=== PATIENT | male | born 1985 | race Two or more races ===

== ENCOUNTER 2016-10-21 15:34 | Emergency (ER) | payer SELFPAY ==
[2016-10-21 15:40] VITALS: BP 130/59
--- NOTE | 2016-10-21 15:45 | ER Document Report ---
ED Medical Screen (RME) - General Stated Complaint: DIFFICULTY BREATHING Notes: 30 yo male with hx/o asthma c/o shortness of breath. needs med refills, albuterol. c/o sore throat and cough x 2 weeks. no fever. Physical Exam - Vital signs Vitals: Temp Pulse Resp BP Pulse Ox 98.1 F 96 18 130/59 H 99 10/21/16 15:39 10/21/16 15:39 10/21/16 15:39 10/21/16 15:39 10/21/16 15:39 Course - Vital Signs Vital signs: Temp Pulse Resp BP Pulse Ox 98.1 F 96 18 130/59 H 99 10/21/16 15:39 10/21/16 15:39 10/21/16 15:39 10/21/16 15:39 10/21/16 15:39
== END 2016-10-21 17:20 | disposition left against medical advice (07) ==
LOC: ER 15:34
DX: R06.00 Dyspnea, unspecified (principal); J02.9 Acute pharyngitis, unspecified; R05 Cough

== ENCOUNTER 2017-03-10 20:36 | Emergency (ER) | payer SELFPAY ==
[2017-03-10] MEDS ORDERED: ASPIRIN 81 MG TABLET, CHEWABLE PO ONE (20:59)
--- NOTE | 2017-03-10 21:21 | RADIOLOGY REPORT (SQ) ---
EXAM DESCRIPTION: CHEST SINGLE VIEW COMPLETED DATE/TIME: 03/10/2017 9:11 pm REASON FOR STUDY: CHEST PAIN COMPARISON: None. EXAM PARAMETERS: NUMBER OF VIEWS: One view. TECHNIQUE: Single frontal radiographic view of the chest acquired. RADIATION DOSE: NA LIMITATIONS: None. FINDINGS: LUNGS AND PLEURA: No opacities, masses or pneumothorax. No pleural effusion. MEDIASTINUM AND HILAR STRUCTURES: No masses. Contour normal. HEART AND VASCULAR STRUCTURES: Heart normal in size. Normal vasculature. BONES: No acute findings. HARDWARE: None in the chest. OTHER: No other significant finding. IMPRESSION: NO ACUTE RADIOGRAPHIC FINDING IN THE CHEST. TECHNICAL DOCUMENTATION: JOB ID: [id number]
[2017-03-10 21:33] LABS: ABSOLUTE BASOPHILS # (AUTO) 0.1 10^3/uL (0.0-0.2); ABSOLUTE EOSINOPHILS # (AUTO) 0.7 10^3/uL (0.0-0.6); ABSOLUTE LYMPHOCYTES (AUTO) 2.5 10^3/uL (0.5-4.7); ABSOLUTE MONOCYTES (AUTO) 0.8 10^3/uL (0.1-1.4); ABSOLUTE NEUT (AUTO) 5.1 10^3/uL (1.7-8.2); EOSINOPHILS % (AUTO) 7.5 % (0-6); HEMATOCRIT 38.1 % (37.9-51.0); HEMOGLOBIN 11.9 g/dL (13.5-17.0); HGB HCT DIFFERENCE -2.4; LYMPHOCYTES % (AUTO) 27.5 % (13-45); MEAN CORPUSCULAR HEMOGLOBIN 18.6 pg (27.0-33.4); MEAN CORPUSCULAR HGB CONC 31.2 g/dL (32.0-36.0); MONOCYTES % (AUTO) 8.3 % (3-13); RED BLOOD COUNT 6.39 10^6/uL (4.35-5.55); RED CELL DISTRIBUTION WIDTH 15.5 % (11.5-14.0); SEGMENTED NEUTROPHILS % (AUTO) 55.7 % (42-78); WHITE BLOOD COUNT 9.2 10^3/uL (4.0-10.5)
[2017-03-10 21:34] LABS: PROTHROMBIN TIME 13.2 SEC (11.4-15.4)
[2017-03-10 21:35] LABS: PARTIAL THROMBOPLASTIN TIME 29.6 SEC (23.5-35.8)
[2017-03-10 21:52] LABS: ALANINE AMINOTRANSFERASE 43 U/L (21-72); ALBUMIN 4.3 g/dL (3.5-5.0); ALKALINE PHOSPHATASE 82 U/L (38-126); ANION GAP 10 (5-19); ASPARTATE AMINO TRANSFERASE 29 U/L (17-59); BILIRUBIN,DIRECT 0.3 mg/dL (0.0-0.4); BILIRUBIN,TOTAL 0.5 mg/dL (0.2-1.3); BLOOD UREA NITROGEN 19 mg/dL (7-20); CALCIUM 9.7 mg/dL (8.4-10.2); CARBON DIOXIDE 27 mmol/L (22-30); CHLORIDE 105 mmol/L (98-107); CREATININE RESULT 1.02 mg/dL (0.52-1.25); GLUCOSE 92 mg/dL (75-110); POTASSIUM 3.8 mmol/L (3.6-5.0); SODIUM 142.2 mmol/L (137-145); TOTAL PROTEIN 7.6 g/dL (6.3-8.2)
[2017-03-10 21:58] LABS: ANISOCYTOSIS 1+; HYPOCHROMASIA 1+; MICROCYTOSIS 3+; OVALOCYTES SLIGHT; POIKILOCYTOSIS SLIGHT; TARGET CELLS SLIGHT; TEAR DROP CELLS SLIGHT
[2017-03-10 21:59] LABS: MEAN CORPUSCULAR VOLUME 60 fl (80-97)
[2017-03-10 22:00] LABS: CREATINE KINASE MB 0.81 ng/mL (<4.55)
[2017-03-10 22:02] LABS: TROPONIN I < 0.012 ng/mL
--- NOTE | 2017-03-11 00:46 | ER Document Report ---
ED General - General Chief Complaint: Chest Pain > 30 Stated Complaint: CHEST PAIN Time Seen by Provider: 03/10/17 22:15 TRAVEL OUTSIDE OF THE [place] IN LAST 30 DAYS: No - HPI Patient complains to provider of: Chest pain Notes: Patient is coming in for complaint of chest pain chest pressure started day prior to arrival. Patient states has a history of having an PR when he was 20 days father to be engaged in the 30s of heart attack. Patient states recent travel [place] on a train. Patient states chest pressure was global to take 1 sublingual nitro when the chest pain happened 24 hours ago with minimal relief of the pain. Patient currently is chest pain-free. Patient does state he is mildly short of breath when the pain came on. States went to an urgent care for evaluation and was told to come to the ER for further evaluation. Patient is resting calmly denies any other past medical problems states his PR at 20 was due to suspected excessive caffeine energy drink use. - Related Data Allergies/Adverse Reactions: No Known Allergies Allergy (Unverified 03/10/17 20:59) Past Medical History - Social History Smoking Status: Never Smoker Frequency of alcohol use: None Drug Abuse: None Family History: Reviewed & Not Pertinent Patient has suicidal ideation: No Patient has homicidal ideation: No - Past Medical History Cardiac Medical History: Reports: Hx Heart Attack Renal/ Medical History: Denies: Hx Peritoneal Dialysis Past Surgical History: Reports: Hx Cardiac Surgery - Immunizations Hx Diphtheria, Pertussis, Tetanus Vaccination: Yes Review of Systems - Review of Systems Constitutional: No symptoms reported EENT: No symptoms reported Cardiovascular: Chest pain Respiratory: No symptoms reported Gastrointestinal: No symptoms reported Genitourinary: No symptoms reported Male Genitourinary: No symptoms reported Musculoskeletal: No symptoms reported Skin: No symptoms reported Hematologic/Lymphatic: No symptoms reported Neurological/Psychological: No symptoms reported -: Yes All other systems reviewed and negative Physical Exam - Vital signs Vitals: Temp Pulse Resp BP Pulse Ox 97.7 F 88 16 141/84 H 98 03/10/17 20:56 03/10/17 20:56 03/10/17 20:56 03/10/17 20:56 03/10/17 20:56 Interpretation: Normal - General General appearance: Appears well, Alert - HEENT Head: Normocephalic, Atraumatic Eyes: Normal Pupils: PERRL - Respiratory Respiratory status: No respiratory distress Chest status: Nontender Breath sounds: Normal Chest palpation: Normal - Cardiovascular Rhythm: Regular Heart sounds: Normal auscultation Murmur: No - Abdominal Inspection: Normal Distension: No distension Bowel sounds: Normal Tenderness: Nontender Organomegaly: No organomegaly - Back Back: Normal, Nontender - Extremities General upper extremity: Normal inspection, Nontender, Normal color, Normal ROM , Normal temperature General lower extremity: Normal inspection, Nontender, Normal color, Normal ROM , Normal temperature, Normal weight bearing. No: Junaid's sign - Neurological Neuro grossly intact: Yes Cognition: Normal Orientation: AAOx4 [place] Coma Scale Eye Opening: Spontaneous [place] Coma Scale Verbal: Oriented [place] Coma Scale Motor: Obeys Commands [place] Coma Scale Total: 15 Speech: Normal Motor strength normal: LUE, RUE, LLE, RLE Sensory: Normal - Psychological Associated symptoms: Normal affect, Normal mood - Skin Skin Temperature: Warm Skin Moisture: Dry Skin Color: Normal Course - Re-evaluation Re-evalutation: 03/11/17 00:45 The patient has atypical chest pain as the patient's chest pain is not suggestive of pulmonary embolus, cardiac ischemia, aortic dissection, or other serious etiology. Given the extremely low risk of these diagnoses further testing and evaluation for these possibilities does not appear to be indicated at this time. The patient has been instructed to return if the symptoms worsen or change in any way. 03/11/17 00:46 Number EKG troponins 2 are negative. Chest x-ray is also negative. Patient is encouraged follow-up with local PCP and cardiology. - Vital Signs Vital signs: Temp Pulse Resp BP Pulse Ox 98.0 F 81 18 117/47 L 97 03/10/17 23:00 03/10/17 23:00 03/10/17 23:00 03/10/17 23:00 03/10/17 23:00 - Laboratory Result Diagrams: 03/10/17 21:10 03/10/17 21:10 Laboratory results interpreted by me: 03/10/17 21:10 RBC 6.39 H Hgb 11.9 L MCV 60 L MCH 18.6 L MCHC 31.2 L RDW 15.5 H Eosinophils % 7.5 H Absolute Eosinophils 0.7 H Discharge - Discharge Clinical Impression: Chest tightness or pressure Condition: Good Disposition: HOME, SELF-CARE Instructions: Chest Pain of Unclear Cause ([facility]), Chest Wall Pain ([facility]), Family Physicians / Practices Additional Instructions: Please follow-up with your primary care physician or physicians provided. Also recommended she follow-up with cardiology. Return to the ER symptoms worsen. Please continue your aspirin regimen. Referrals: OBED VAZQUEZ MD [ACTIVE STAFF] - Follow up as needed
[2017-03-11 01:21] VITALS: BP 121/64
--- NOTE | 2017-03-11 09:57 | EKG REPORT ---
SEVERITY:- NORMAL ECG - SINUS RHYTHM : Confirmed by: Isaac Licea 11-Mar-2017 09:55:35
[2017-03-11 14:46] LABS: PATH REVIEW PATHOLOGIST REVIEWED
== END 2017-03-11 01:30 | disposition home or self-care (01) ==
LOC: ER 20:36
DX: R07.89 Other chest pain (principal); I25.2 Old myocardial infarction; R06.02 Shortness of breath
CPT/HCPCS: 36415; 71010; 80053; 82553; 84443; 84484; 85025; 85379; 85610; 85730; 93005; 93010; 99285

== ENCOUNTER → 2018-09-07 | Outpatient (CLI) | payer OTHER ==
--- NOTE | 2018-09-07 14:56 | RADIOLOGY REPORT (SQ) ---
EXAM DESCRIPTION: FOOT LEFT COMPLETE COMPLETED DATE/TIME: 09/07/2018 2:47 pm REASON FOR STUDY: LEFT FOOT AND ANKLE PAIN (M79.672, M25.572) M79.672 PAIN IN LEFT FOOT M25.572 PA IN IN LEFT ANKLE AND JOINTS OF LEFT FOOT COMPARISON: None. NUMBER OF VIEWS: Three views. TECHNIQUE: AP, lateral and oblique radiographic images acquired of the left foot. LIMITATIONS: None. FINDINGS: MINERALIZATION: Normal. BONES: No acute fracture or dislocation. No worrisome bone lesions. JOINTS: No effusions. SOFT TISSUES: No soft tissue swelling. No foreign body. OTHER: No other significant finding. IMPRESSION: 1. NEGATIVE STUDY OF THE LEFT FOOT. TECHNICAL DOCUMENTATION: JOB ID: [id number] [employer]- All Rights Reserved Reading location - IP/workstation name: [email or web address]
--- NOTE | 2018-09-07 14:56 | RADIOLOGY REPORT (SQ) ---
EXAM DESCRIPTION: ANKLE LEFT COMPLETE COMPLETED DATE/TIME: 09/07/2018 2:47 pm REASON FOR STUDY: LEFT FOOT AND ANKLE PAIN (M79.672, M25.572) M79.672 PAIN IN LEFT FOOT M25.572 PA IN IN LEFT ANKLE AND JOINTS OF LEFT FOOT COMPARISON: None. NUMBER OF VIEWS: Three views. TECHNIQUE: AP, lateral, and oblique radiographic images acquired of the left ankle. LIMITATIONS: None. FINDINGS: MINERALIZATION: Normal. BONES: No acute fracture or dislocation. No worrisome bone lesions. JOINTS: No effusions. SOFT TISSUES: No soft tissue swelling. No foreign body. OTHER: No other significant finding. IMPRESSION: 1. NEGATIVE STUDY OF THE LEFT ANKLE. TECHNICAL DOCUMENTATION: JOB ID: [id number] [employer]- All Rights Reserved Reading location - IP/workstation name: [email or web address]
== END ==
LOC: RAD 14:24
PROVIDERS: ATTEND Internal Medicine
DX: M79.672 Pain in left foot (principal); M25.572 Pain in left ankle and joints of left foot

== ENCOUNTER → 2018-09-13 | Outpatient (CLI) | payer OTHER ==
--- NOTE | 2018-09-13 08:50 | RADIOLOGY REPORT (SQ) ---
EXAM DESCRIPTION: MRI LT LOWER JOINT WITHOUT COMPLETED DATE/TIME: 09/13/2018 8:16 am REASON FOR STUDY: M25.572 PAIN IN LEFT ANKLE AND JOINTS OF LEFT FOOT M79.662 PAIN IN LEFT LOWER LEG COMPARISON: Recent radiographs. TECHNIQUE: Left ankle images acquired and stored on PACS. Multiplanar images include fat sensitive s equences as T1, fluid sensitive sequences as FST2/STIR, cartilage sensitive sequences as FSPD, and gr adient echo sequences. LIMITATIONS: None. FINDINGS: BONE MARROW: Marrow edema in the posterosuperior calcaneal tuberosity underlying Achilles insertion. EFFUSIONS: No subtalar or tibiotalar effusions. No loose bodies. OSSEOUS ARTICULATIONS: Normal tibiotalar, subtalar, talonavicular and calcaneocuboid joints. TALAR DOME AND TIBIAL PLAFOND: No talar dome lesions. Prominent os trigonum without arthropathic fea tures. ACHILLES TENDON: No significant Achilles tear. Mild thickening and tendinosis. There is retrocalcan eal bursitis and calcaneal insertional bone edema as above. TIBIALIS ANTERIOR TENDON: Intact without edema at the 1st MT attachment. TIBIALIS POSTERIOR TENDON: Normal morphology and no edema at the navicular attachment. No tendon purcell th fluid. FLEXOR HALLUCIS LONGUS AND FLEXOR DIGITORUM TENDONS: Normal morphology and no tendon sheath fluid. No edema of the os trigonum. PERONEUS LONGUS AND BREVIS TENDON: Normal morphology and no tendon sheath fluid. No subluxation. ATFL, CFL, PTFL: Intact. No thickening or signal alteration. No kandace-ligamentous fluid. DELTOID LIGAMENT: Visualized components intact. TARSAL TUNNEL: No masses. No muscle atrophy. SINUS TARSI: No fluid. No reactive marrow edema or erosions. PLANTAR FASCIA: No signal alteration or tear. ADJACENT SOFT TISSUES: No masses. OTHER: No other significant finding. IMPRESSION: 1. Reactive calcaneal marrow edema along Achilles insertion. The Achilles tendon itsel f looks relatively intact allowing for mild tendinosis. There is also and mild retrocalcaneal bursit is present. 2. Otherwise, generally unremarkable MRI of the left ankle. TECHNICAL DOCUMENTATION: JOB ID: [id number] [employer]- All Rights Reserved Reading location - IP/workstation name: [email or web address] [id number]
== END ==
LOC: RAD 07:48
PROVIDERS: ATTEND Family Medicine Geriatric Medicine
DX: M25.572 Pain in left ankle and joints of left foot (principal); M76.62 Achilles tendinitis, left leg; M79.672 Pain in left foot

== ENCOUNTER 2019-02-04 07:51 | Emergency (ER) | payer SELFPAY ==
[2019-02-04] MEDS ORDERED: KETOROLAC TROMETHAMINE INJ/PF 30 MG/1 ML SDV IV ONE (08:15)
--- NOTE | 2019-02-04 08:20 | ER Document Report ---
ED GI/ - General Chief Complaint: Flank Pain Stated Complaint: SIDE PAIN Time Seen by Provider: 02/04/19 08:08 Primary Care Provider: RITCHIE DE LA CRUZ MD [COMMUNITY BASED STAFF] - Follow up as needed Mode of Arrival: Ambulatory Information source: Patient Notes: Patient is a 33-year-old male presenting to the emergency department chief complaint of left flank pain. Patient reports the pain started on . Patient reports pain radiates around from the left flank into the left mid abdomen. Patient denies any hematuria, dysuria, nausea, vomiting, diarrhea or fevers. Patient denies any history of kidney stones. Reports history of asthma. Patient states the pain is constant and peaks in intensity. Patient denies any alleviating or exacerbating factors. TRAVEL OUTSIDE OF THE [place] IN LAST 30 DAYS: No - Related Data Allergies/Adverse Reactions: No Known Allergies Allergy (Verified 02/04/19 07:51) Past Medical History - General Information source: Patient - Social History Smoking Status: Never Smoker Frequency of alcohol use: None Drug Abuse: None Family History: Reviewed & Not Pertinent - Past Medical History Cardiac Medical History: Reports: Hx Heart Attack Pulmonary Medical History: Reports: Hx Asthma Renal/ Medical History: Denies: Hx Peritoneal Dialysis Past Surgical History: Reports: Hx Cardiac Surgery - Immunizations Hx Diphtheria, Pertussis, Tetanus Vaccination: Yes Review of Systems - Review of Systems Constitutional: No symptoms reported. denies: Chills, Fever EENT: No symptoms reported Cardiovascular: No symptoms reported Respiratory: No symptoms reported Gastrointestinal: No symptoms reported. denies: Nausea, Vomiting, Constipation Genitourinary: Flank pain. denies: Dysuria, Frequency, Hematuria, Urgency Male Genitourinary: No symptoms reported Musculoskeletal: No symptoms reported Skin: No symptoms reported Hematologic/Lymphatic: No symptoms reported Neurological/Psychological: No symptoms reported Physical Exam - Vital signs Vitals: Temp Pulse Resp BP Pulse Ox 97.7 F 85 20 110/88 H 100 02/04/19 07:55 02/04/19 07:55 02/04/19 07:55 02/04/19 07:55 02/04/19 07:55 - Notes Notes: PHYSICAL EXAMINATION: GENERAL: Well-appearing, well-nourished and in no acute distress. HEAD: Atraumatic, normocephalic. EYES: Pupils equal round and reactive to light, extraocular movements intact, sclera anicteric, conjunctiva are normal. ENT: Nares patent, oropharynx clear without exudates. Moist mucous membranes. NECK: Normal range of motion, supple without lymphadenopathy LUNGS: Breath sounds clear to auscultation bilaterally and equal. No wheezes rales or rhonchi. HEART: Regular rate and rhythm without murmurs ABDOMEN: Soft, nontender, nondistended abdomen. No guarding, no rebound. No masses appreciated. Left CVA tenderness. Musculoskeletal: Normal range of motion, no pitting or edema. No cyanosis. NEUROLOGICAL: Cranial nerves grossly intact. Normal speech, normal gait. Normal sensory, motor exams PSYCH: Normal mood, normal affect. SKIN: Warm, Dry, normal turgor, no rashes or lesions noted. Course - Re-evaluation Re-evalutation: Patient with mild leukocytosis, white blood count 12.2. Labs otherwise unremarkable. Left upper lobe and left lower lobe pneumonia are not noted on chest x-ray and left lower lobe pneumonia noted on CT of the abdomen and pelvis. No evidence of renal stone. Patient's vital signs are stable, no evidence of tachycardia or hypotension. Patient will be given dose of IV Rocephin here in the emergency department and started on p.o. antibiotics. Patient is agreeable to this plan, patient given strict ED return precautions. - Vital Signs Vital signs: Temp Pulse Resp BP Pulse Ox 97.4 F 79 14 114/99 H 100 02/04/19 11:27 02/04/19 11:27 02/04/19 11:27 02/04/19 11:27 02/04/19 11:27 - Laboratory Result Diagrams: 02/04/19 08:30 02/04/19 08:30 Laboratory results interpreted by me: 02/04/19 08:30 WBC 10.6 H RBC 6.25 H Hgb 12.2 L Hct 37.2 L MCV 60 L MCH 19.5 L RDW 15.9 H Lymphocytes % 8.3 L Discharge - Discharge Clinical Impression: Pneumonia Qualifiers: Pneumonia type: due to unspecified organism Laterality: left Lung location: unspecified part of lung Qualified Code(s): J18.9 - Pneumonia, unspecified organism Condition: Stable Disposition: HOME, SELF-CARE Additional Instructions: You have been diagnosed with a pneumonia. It is very important that you take all of your antibiotics until they are gone even if you are feeling better. Please return to the emergency department immediately if you began having worse kang shortness of breath, become confused, have worsening pain, pass out, have persistent vomiting that prevents you from being able to drink fluids for more than 12 hours, or have any other symptoms that are worrisome to you. Please follow-up with your primary care doctor in the next 1-2 days. Prescriptions: Doxycycline Hyclate 100 mg PO BID #14 capsule Hydrocodone/Acetaminophen [[place] 5-325 mg Tablet] 1 tab PO Q4H PRN #10 tablet PRN Reason: Referrals: RITCHIE DE LA CRUZ MD [COMMUNITY BASED STAFF] - Follow up as needed
[2019-02-04 08:29] LABS: APPEARANCE,URINE CLEAR; BILIRUBIN,URINE NEGATIVE (NEGATIVE); COLOR,URINE YELLOW; GLUCOSE, URINE NEGATIVE (NEGATIVE); KETONES,URINE NEGATIVE (NEGATIVE); LEUKOCYTE ESTERASE,URINE NEGATIVE (NEGATIVE); NITRITE,URINE NEGATIVE (NEGATIVE); PROTEIN,URINE NEGATIVE (NEGATIVE); URINE SPECIFIC GRAVITY 1.018; UROBILINOGEN,URINE NEGATIVE mg/dL (<2.0)
[2019-02-04 08:46] LABS: ABSOLUTE BASOPHILS # (AUTO) 0.1 10^3/uL (0.0-0.2); ABSOLUTE EOSINOPHILS # (AUTO) 0.5 10^3/uL (0.0-0.6); ABSOLUTE LYMPHOCYTES (AUTO) 0.9 10^3/uL (0.5-4.7); ABSOLUTE MONOCYTES (AUTO) 1.2 10^3/uL (0.1-1.4); BASOPHILS % (AUTO) 0.7 % (0-2); EOSINOPHILS % (AUTO) 4.4 % (0-6); HEMATOCRIT 37.2 % (37.9-51.0); HEMOGLOBIN 12.2 g/dL (13.5-17.0); LYMPHOCYTES % (AUTO) 8.3 % (13-45); MEAN CORPUSCULAR HEMOGLOBIN 19.5 pg (27.0-33.4); MEAN CORPUSCULAR HGB CONC 32.8 g/dL (32.0-36.0); MONOCYTES % (AUTO) 11.2 % (3-13); PLATELET COUNT 295 10^3/uL (150-450); RED BLOOD COUNT 6.25 10^6/uL (4.35-5.55); RED CELL DISTRIBUTION WIDTH 15.9 % (11.5-14.0); SEGMENTED NEUTROPHILS % (AUTO) 75.4 % (42-78); TOTAL CELLS COUNTED % (AUTO) 100 %; WHITE BLOOD COUNT 10.6 10^3/uL (4.0-10.5)
[2019-02-04 09:05] LABS: ALANINE AMINOTRANSFERASE 41 U/L (21-72); ALBUMIN 4.4 g/dL (3.5-5.0); ALKALINE PHOSPHATASE 73 U/L (38-126); ANION GAP 9 (5-19); ASPARTATE AMINO TRANSFERASE 32 U/L (17-59); BILIRUBIN,DIRECT 0.3 mg/dL (0.0-0.4); BILIRUBIN,TOTAL 0.8 mg/dL (0.2-1.3); BLOOD UREA NITROGEN 15 mg/dL (7-20); CALCIUM 10.2 mg/dL (8.4-10.2); CARBON DIOXIDE 27 mmol/L (22-30); CHLORIDE 104 mmol/L (98-107); GLUCOSE 97 mg/dL (75-110); LIPASE 108.3 U/L (23-300); POTASSIUM 4.6 mmol/L (3.6-5.0); SODIUM 140.4 mmol/L (137-145); TOTAL PROTEIN 7.9 g/dL (6.3-8.2)
[2019-02-04 09:16] LABS: MEAN CORPUSCULAR VOLUME 60 fl (80-97)
[2019-02-04 09:18] LABS: ANISOCYTOSIS 1+; HYPOCHROMASIA 3+; OVALOCYTES 1+; POIKILOCYTOSIS 1+; POLYCHROMASIA SLIGHT
[2019-02-04 09:19] LABS: PLATELET COMMENT ADEQUATE; TEAR DROP CELLS SLIGHT
--- NOTE | 2019-02-04 09:25 | RADIOLOGY REPORT (SQ) ---
EXAM DESCRIPTION: CT ABD/PELVIS WITH IV ONLY COMPLETED DATE/TIME: 02/04/2019 9:03 am REASON FOR STUDY: left sided abd pain COMPARISON: None. TECHNIQUE: CT scan of the abdomen and pelvis performed using helical scanning technique with dynamic intravenous contrast injection. No oral contrast. Images reviewed with lung, soft tissue, and bone windows. Reconstructed coronal and sagittal MPR images reviewed. Delayed images for evaluation of the urinary system also acquired. All images stored on PACS. All CT scanners at this facility use dose modulation, iterative reconstruction, and/or weight based d osing when appropriate to reduce radiation dose to as low as reasonably achievable (ALARA). [facility]: Dose Right [facility]: CareDose [facility]: Dose Right [facility]: Teradose 4D [facility]: Hypejar CONTRAST TYPE AND DOSE: contrast/concentration: Isovue 350.00 mg/ml; Total Contrast Delivered: 99.0 ml; Total Saline Delivered: 72.0 ml RENAL FUNCTION: None required. The patient is less than 50 years old. RADIATION DOSE: CT Rad equipment meets quality standard of care and radiation dose reduction techniq ues were employed. CTDIvol: 5.9 - 8.2 mGy. DLP: 858 mGy-cm.. LIMITATIONS: None. FINDINGS: LOWER CHEST: Focal subpleural density in the posterior left lung, measuring 1.2 by 2.3 cm. No pleural effusion. No pneumothorax. LIVER: Normal size. No masses. No dilated ducts. SPLEEN: Normal size. No focal lesions. PANCREAS: No masses. No significant calcifications. No adjacent inflammation or peripancreatic fluid collections. Pancreatic duct not dilated. GALLBLADDER: No identified stones by CT criteria. No inflammatory changes to suggest cholecystitis. ADRENAL GLANDS: No significant masses or asymmetry. RIGHT KIDNEY AND URETER: No solid masses. No significant calcifications. No hydronephrosis or hyd roureter. LEFT KIDNEY AND URETER: No solid masses. No significant calcifications. No hydronephrosis or hydr oureter. AORTA AND VESSELS: No aneurysm. No dissection. Renal arteries, SMA, celiac without stenosis. RETROPERITONEUM: No retroperitoneal adenopathy, hemorrhage or masses. BOWEL AND PERITONEAL CAVITY: No masses or inflammatory changes. No free fluid or peritoneal masses. APPENDIX: Not visualized. PELVIS: No mass. No free fluid. Normal bladder. ABDOMINAL WALL: No masses. No hernias. BONES: No significant or acute findings. OTHER: No other significant finding. IMPRESSION: 1. FOCAL SUBPLEURAL DENSITY IN THE POSTERIOR LEFT LUNG, MOST LIKELY DUE TO PNEUMONIA. MALIGNANT PROC ESS WOULD BE ANOTHER POSSIBILITY BUT FELT TO BE LESS LIKELY. 2. NO SIGNIFICANT OR ACUTE FINDING IN THE ABDOMEN OR PELVIS ON CT SCAN WITH IV CONTRAST. TECHNICAL DOCUMENTATION: JOB ID: [id number] Quality ID # [id number]: Final reports with documentation of one or more dose reduction techniques (e.g., Au tomated exposure control, adjustment of the mA and/or kV according to patient size, use of iterative reconstruction technique) 2010 [employer]- All Rights Reserved Reading location - IP/workstation name: [email or web address]
[2019-02-04] MEDS ORDERED: CEFTRIAXONE 1 GM/D5W RTU 1 GM/50 ML RTUPB IV ONE ×2 (09:52→11:00)
--- NOTE | 2019-02-04 10:19 | RADIOLOGY REPORT (SQ) ---
EXAM DESCRIPTION: CHEST 2 VIEWS COMPLETED DATE/TIME: 02/04/2019 10:02 am REASON FOR STUDY: LLL PNA on CT abd, eval all lung [facility] COMPARISON: CT abdomen dated 02/04/2019. Chest x-ray dated 03/10/2017. EXAM PARAMETERS: NUMBER OF VIEWS: two views TECHNIQUE: Digital Frontal and Lateral radiographic views of the chest acquired. RADIATION DOSE: NA LIMITATIONS: none FINDINGS: LUNGS AND PLEURA: Faint density in the retrocardiac left lung, barely visible on the later al image. Streaky density in the left upper lobe. No pleural effusion. No pneumothorax. MEDIASTINUM AND HILAR STRUCTURES: No masses or contour abnormalities. HEART AND VASCULAR STRUCTURES: Heart normal size. No evidence for failure. BONES: No acute findings. HARDWARE: None in the chest. OTHER: No other significant finding. IMPRESSION: THE FAINT INFILTRATE IN THE LEFT LOWER LOBE IS DIFFICULT TO VISUALIZE ON X-RAY. THERE I S STREAKY DENSITY IN THE LEFT UPPER LOBE SUSPICIOUS FOR FAINT PNEUMONIA. TECHNICAL DOCUMENTATION: JOB ID: [id number] [employer]- All Rights Reserved Reading location - IP/workstation name: [email or web address]
[2019-02-04 11:29] VITALS: BP 114/99
[2019-02-06 13:10] LABS: PATH REVIEW PATHOLOGIST REVIEWED
== END 2019-02-04 11:32 | disposition home or self-care (01) ==
LOC: ER 07:51
DX: J18.9 Pneumonia, unspecified organism (principal); R10.9 Unspecified abdominal pain; I25.2 Old myocardial infarction
CPT/HCPCS: 99284; 96374; 36415; 83690; 85025; 80053; 81001; 71046; 74177; J1885; J0696

== ENCOUNTER 2019-02-04 21:31 | Observation (INO) | payer SELFPAY ==
--- NOTE | 2019-02-05 | ER Document Report ---
ED Medical Screen (RME) - General Chief Complaint: Cough Stated Complaint: SHORTNESS OF BREATH Time Seen by Provider: 02/04/19 23:55 TRAVEL OUTSIDE OF THE [place] IN LAST 30 DAYS: No - HPI Notes: 02/05/19 00:19 Patient presents to the emergency department with a chief complaint of worsening shortness of breath and bloody sputum. Patient states yesterday morning was diagnosed with pneumonia. States he was placed on doxycycline and hydrocodone for his cough. Patient did receive 1 dose of doxy at home. Patient reports that earlier today he had a 1 hour episode of persistent cough with bloody sputum. Patient states that his left flank pain has continued to get worse and he feels more labored with his breathing. Denies nausea vomiting or diarrhea. Patient reports a temperature of 103.0 at home in which he took Tylenol for. She reports that he was told if he was getting worse to return to the emergency department. - Related Data Allergies/Adverse Reactions: No Known Allergies Allergy (Verified 02/04/19 21:35) Past Medical History - Past Medical History Cardiac Medical History: Reports: Hx Heart Attack Pulmonary Medical History: Reports: Hx Asthma Renal/ Medical History: Denies: Hx Peritoneal Dialysis Past Surgical History: Reports: Hx Cardiac Surgery - Immunizations Hx Diphtheria, Pertussis, Tetanus Vaccination: Yes Physical Exam - Respiratory Respiratory status: Labored Chest status: Nontender, Pain on movement, Pain with cough, Pain with deep breathing Breath sounds: Normal, Productive cough Chest palpation: Normal Course - Re-evaluation Re-evalutation: 02/05/19 00:21 I have greeted and performed a rapid initial assessment of this patient. A comprehensive ED assessment and evaluation of the patient, analysis of test results and completion of the medical decision making process will be conducted by additional ED providers.
[2019-02-05 00:35] LABS: ABSOLUTE BASOPHILS # (AUTO) 0.1 10^3/uL (0.0-0.2); ABSOLUTE EOSINOPHILS # (AUTO) 0.7 10^3/uL (0.0-0.6); ABSOLUTE LYMPHOCYTES (AUTO) 1.6 10^3/uL (0.5-4.7); ABSOLUTE MONOCYTES (AUTO) 1.4 10^3/uL (0.1-1.4); BASOPHILS % (AUTO) 0.6 % (0-2); EOSINOPHILS % (AUTO) 5.9 % (0-6); HEMATOCRIT 38.6 % (37.9-51.0); HEMOGLOBIN 12.4 g/dL (13.5-17.0); LYMPHOCYTES % (AUTO) 13.5 % (13-45); MEAN CORPUSCULAR HEMOGLOBIN 18.9 pg (27.0-33.4); MEAN CORPUSCULAR VOLUME 59 fl (80-97); MONOCYTES % (AUTO) 12.1 % (3-13); PLATELET COUNT 329 10^3/uL (150-450); RED BLOOD COUNT 6.54 10^6/uL (4.35-5.55); RED CELL DISTRIBUTION WIDTH 15.9 % (11.5-14.0); SEGMENTED NEUTROPHILS % (AUTO) 67.9 % (42-78); TOTAL CELLS COUNTED % (AUTO) 100 %; WHITE BLOOD COUNT 11.8 10^3/uL (4.0-10.5)
[2019-02-05 00:53] LABS: PLATELET COMMENT ADEQUATE
[2019-02-05 00:55] LABS: ANISOCYTOSIS 1+; HYPOCHROMASIA SLIGHT; OVALOCYTES 1+; TARGET CELLS SLIGHT
[2019-02-05 00:58] LABS: ALANINE AMINOTRANSFERASE 36 U/L (21-72); ALBUMIN 4.4 g/dL (3.5-5.0); ALKALINE PHOSPHATASE 82 U/L (38-126); ANION GAP 10 (5-19); ASPARTATE AMINO TRANSFERASE 31 U/L (17-59); BILIRUBIN,DIRECT 0.3 mg/dL (0.0-0.4); BILIRUBIN,TOTAL 0.6 mg/dL (0.2-1.3); BLOOD UREA NITROGEN 13 mg/dL (7-20); CALCIUM 9.8 mg/dL (8.4-10.2); CARBON DIOXIDE 28 mmol/L (22-30); CHLORIDE 105 mmol/L (98-107); GLUCOSE 91 mg/dL (75-110); POTASSIUM 4.3 mmol/L (3.6-5.0); SODIUM 142.7 mmol/L (137-145); TOTAL PROTEIN 7.8 g/dL (6.3-8.2)
[2019-02-05] MEDS ORDERED: ONDANSETRON HCL INJ/PF 4 MG/2 ML SDV IV ONE (01:02)
[2019-02-05] MEDS ORDERED: MORPHINE SULFATE 10 MG/ML INJ IV ONE (01:02)
--- NOTE | 2019-02-05 02:18 | RADIOLOGY REPORT (SQ) ---
CLINICAL HISTORY: cp, sob, coughing up blood, r/o pe COMPARISON: None. TECHNIQUE: CT CHEST ANGIOGRAPHY WITHOUT THEN WITH IV CONTRAST on 02/05/2019 12:56 AM CDT. MIPS reconstructions were generated. This exam was performed according to our departmental dose-optimization program, which includes automated exposure control, adjustment of the mA and/or kV according to patient size and/or use of iterative reconstruction technique. MIP images were generated. FINDINGS: Thoracic aorta is normal in course and caliber without aneurysm or dissection. Pulmonary arteries are adequately opacified without acute or chronic filling defects. The heart is normal in size. There is no pericardial effusion. Intrathoracic lymph nodes are not enlarged. There is a trace left pleural effusion. There is large area of mucous plugging in the posterior left upper lobe with multiple adjacent tree-in-bud nodular opacities. There is small rounded nodule in the left lower lobe measuring 2.6 cm. There are no acute abnormalities within the limited images of the upper abdomen. There are no acute osseous findings. No suspicious bony lesions. IMPRESSION: No definite pulmonary embolus. No aortic dissection or aneurysm. Tubular mucous plugging in the posterior left upper lobe with associated tree-in-bud nodules. This is suspicious for underlying infectious process. Indeterminate 2.6 cm left lower lobe pulmonary nodule/opacity. Recommend short-term follow-up in 2-4 weeks.
[2019-02-05] MEDS ORDERED: CEFTRIAXONE 1 GM/D5W RTU 1 GM/50 ML RTUPB IV ONE (02:34)
[2019-02-05] MEDS ORDERED: AZITHROMYCIN INJ 500 MG VIAL IV ONE (02:39)
[2019-02-05] MEDS ORDERED: IPRATROPIUM/ALBUTEROL 0.5-2.5 MG/3 ML AMPUL NEB PRN (02:44)
[2019-02-05] MEDS ORDERED: NORMAL SALINE 1000 ML 1,000 ML IV PRN (02:45)
--- NOTE | 2019-02-05 02:46 | ER Document Report ---
ED General - General Chief Complaint: Cough Stated Complaint: SHORTNESS OF BREATH Time Seen by Provider: 02/04/19 23:55 Mode of Arrival: Ambulatory Information source: Patient Notes: This is a 33-year-old man with a history of a stress-induced OR at the age of 23 (this occurred in [place] and he reports having a balloon angioplasty at that time). He otherwise has no significant medical problems. The patient states over the last week he is been profoundly weak, short of breath and having significant orthopnea and dyspnea on exertion. He was also complaining of some left back pain. He was seen in the emergency room yesterday and diagnosed with a pneumonia and was given oral antibiotics as well as pain medicines. He does report that he vomited up those antibiotics and comes in for repeat evaluation. Additionally, he states he has had bloody sputum today. Of significance, he pulido s have a family history for blood clots (both parents). He is not a smoker. TRAVEL OUTSIDE OF THE [place] IN LAST 30 DAYS: No - HPI Onset: Last week Onset/Duration: Gradual Quality of pain: Dull Severity: Moderate Pain Level: 3 Associated symptoms: Productive cough - Cough productive of any sputum, Shortness of breath. denies: Fever Exacerbated by: Denies Relieved by: Denies Similar symptoms previously: No Recently seen / treated by doctor: Yes - Related Data Allergies/Adverse Reactions: No Known Allergies Allergy (Verified 02/04/19 21:35) Past Medical History - General Information source: Patient - Social History Smoking Status: Never Smoker Cigarette use (# per day): No Chew tobacco use (# tins/day): No Frequency of alcohol use: None Drug Abuse: None Lives with: Alone Family History: Reviewed & Not Pertinent Patient has suicidal ideation: No Patient has homicidal ideation: No - Past Medical History Cardiac Medical History: Reports: Hx Heart Attack Pulmonary Medical History: Reports: Hx Asthma Renal/ Medical History: Denies: Hx Peritoneal Dialysis Past Surgical History: Reports: Hx Cardiac Surgery - Immunizations Hx Diphtheria, Pertussis, Tetanus Vaccination: Yes Review of Systems - Review of Systems Constitutional: denies: Chills, Fever EENT: No symptoms reported Cardiovascular: No symptoms reported Respiratory: See HPI Gastrointestinal: No symptoms reported Genitourinary: No symptoms reported Male Genitourinary: No symptoms reported Musculoskeletal: No symptoms reported Skin: No symptoms reported Hematologic/Lymphatic: No symptoms reported Neurological/Psychological: No symptoms reported Physical Exam - Vital signs Vitals: Temp Pulse Resp BP Pulse Ox 97.8 F 105 H 22 H 123/81 96 02/04/19 21:41 02/04/19 21:41 02/04/19 21:41 02/04/19 21:41 02/04/19 21:41 Notes: Physical exam: GENERAL: he is alert and oriented x3, O2 sat drops down in the 93 range after walking around. HEAD: Atraumatic, normocephalic. EYES: Pupils equal round and reactive to light, extraocular movements intact, sclera anicteric, conjunctiva are normal. ENT: TMs normal, nares patent, oropharynx clear without exudates. Moist mucous membranes. NECK: Normal range of motion, supple without obvious mass or JVD. LUNGS: Breath sounds clear to auscultation bilaterally and equal. No wheezes rales or rhonchi. HEART: Regular rate and rhythm without murmurs, rubs or gallops. ABDOMEN: Soft, normoactive bowel sounds. No tenderness to palpation. No guarding, no rebound. No masses appreciated. Left CVA tenderness EXTREMITIES: Normal range of motion, no pitting or edema. No clubbing or cyanosis. NEUROLOGICAL: Cranial nerves II through XII grossly intact. Normal speech, moving all extremities. PSYCH: Normal mood, normal affect. SKIN: Warm, Dry, normal turgor, no rashes or lesions noted. Course - Re-evaluation Re-evalutation: Note: The CTA does show a 2.6 cm nodule or opacity. We are treating him for pneumonia. They do recommend short-term follow-up. 02/05/19 02:49 - Vital Signs Vital signs: Temp Pulse Resp BP Pulse Ox 97.8 F 105 H 22 H 123/81 96 02/04/19 21:41 02/04/19 21:41 02/04/19 21:41 02/04/19 21:41 02/04/19 21:41 - Laboratory Result Diagrams: 02/05/19 00:10 02/05/19 00:10 Laboratory results interpreted by me: 02/05/19 00:10 WBC 11.8 H RBC 6.54 H Hgb 12.4 L MCV 59 L MCH 18.9 L RDW 15.9 H Absolute Eosinophils 0.7 H - Diagnostic Test Radiology reviewed: Image reviewed, Reports reviewed - CTA shows no evidence of pulmonary emboli Discharge - Discharge Clinical Impression: Pneumonia Condition: Stable Disposition: ADMITTED INPATIENT Admitting Provider: Sacha (Hospitalist) Unit Admitted: Telemetry
[2019-02-05] MEDS ORDERED: NORMAL SALINE 1000 ML 1,000 ML IV ONE (02:49)
[2019-02-05] MEDS ORDERED: FLUTICASONE NASAL SPRAY 50 MCG/SPRY 120 SPRAY/16 GM ONE (03:01)
[2019-02-05] MEDS: CHLORPHENIRAMINE MALEATE 4 MG TABLET PO SCH ×4 (03:25→20:45)
[2019-02-05] MEDS: FLUTICASONE NASAL SPRAY 50 MCG/SPRY 120 SPRAY/16 GM NASL SCH ×3 (03:25→22:11)
[2019-02-05] MEDS: ACETAMINOPHEN 325 MG TABLET PO PRN (04:19)
[2019-02-05] MEDS: HEPARIN SOD (PORCINE) 5,000 UNIT/ML 1 ML SYRINGE SUBCUT SCH ×3 (05:34→22:12)
--- NOTE | 2019-02-05 06:48 | PDOC H&P ---
History of Present Illness Admission Date/PCP: 02/05/19 02:47 Patient complains of: Shortness of breath and cough History of Present Illness: DEBBI HARRISON is a 33 year old male with a past medical history of asthma presents with 5 days of cough and fatigue developing shortness of breath and abdominal, chest wall pain with coughing and a single episode of hemoptysis versus hematemesis. Presents to the emergency room where he is found to have leukocytosis, fever, vomiting, unable to tolerate p.o. He is started on empiric antibiotics and referred to the hospitalist for admission. Patient denies recent antibiotic use. 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 Past Medical History Cardiac Medical History: Reports: Myocardial Infarction - at age 23 Pulmonary Medical History: Reports: Asthma Past Surgical History Past Surgical History: Reports: None Social History Information Source: Patient, [facility] Records Lives with: Alone Smoking Status: Never Smoker Frequency of Alcohol Use: None Hx Recreational Drug Use: No Drugs: None Hx Prescription Drug Abuse: No - Advance Directive Resuscitation Status: Full Code Family History Family History: Hypertension Parental Family History Reviewed: Yes Children Family History Reviewed: Yes Sibling(s) Family History Reviewed.: Yes Medication/Allergy Home Medications: Doxycycline Hyclate 100 mg PO BID #14 capsule 02/04/19 Hydrocodone/Acetaminophen [[place] 5-325 mg Tablet] 1 tab PO Q4H PRN #10 tablet 02/04/19 Allergies/Adverse Reactions: No Known Allergies Allergy (Verified 02/04/19 21:35) Review of Systems Constitutional: ABSENT: chills, fever(s), headache(s), weight gain, weight loss Eyes: ABSENT: visual disturbances Ears: ABSENT: hearing changes Cardiovascular: ABSENT: chest pain, dyspnea on exertion, edema, orthropnea, palpitations Respiratory: ABSENT: cough, hemoptysis Gastrointestinal: ABSENT: abdominal pain, constipation, diarrhea, hematemesis, hematochezia, nausea, vomiting Genitourinary: ABSENT: dysuria, hematuria Musculoskeletal: ABSENT: joint swelling Integumentary: ABSENT: rash, wounds Neurological: ABSENT: abnormal gait, abnormal speech, confusion, dizziness, focal weakness, syncope Psychiatric: ABSENT: anxiety, depression, homidical ideation, suicidal ideation Endocrine: ABSENT: cold intolerance, heat intolerance, polydipsia, polyuria Hematologic/Lymphatic: ABSENT: easy bleeding, easy bruising Physical Exam Vital Signs: Temp Pulse Resp BP Pulse Ox 97.5 F 65 16 124/63 98 02/05/19 04:11 02/05/19 04:24 02/05/19 04:11 02/05/19 04:11 02/05/19 04:11 Intake & Output 02/03/19 02/04/19 02/05/19 11:59 11:59 11:59 Intake Total 50 Output Total 0 Balance 50 Weight 87.8 kg General appearance: PRESENT: cooperative, mild distress, well-developed, well- nourished. ABSENT: disheveled Head exam: PRESENT: atraumatic, normocephalic Eye exam: PRESENT: conjunctiva pink, EOMI, PERRLA. ABSENT: scleral icterus Ear exam: PRESENT: normal external ear exam Mouth exam: PRESENT: moist, tongue midline Neck exam: ABSENT: carotid bruit, JVD, lymphadenopathy, thyromegaly Respiratory exam: PRESENT: accessory muscle use, clear to auscultation angélica, crackles, prolonged expiratory phas, rhonchi, tachypnea. ABSENT: rales, wheezes Cardiovascular exam: PRESENT: RRR. ABSENT: diastolic murmur, rubs, systolic murmur Pulses: PRESENT: normal dorsalis pedis pul Vascular exam: PRESENT: normal capillary refill GI/Abdominal exam: PRESENT: normal bowel sounds, soft. ABSENT: distended, guarding, mass, organolmegaly, rebound, tenderness Rectal exam: PRESENT: deferred Extremities exam: PRESENT: full ROM. ABSENT: calf tenderness, clubbing, pedal edema Neurological exam: PRESENT: alert, awake, oriented to person, oriented to place, oriented to time, oriented to situation, CN II-XII grossly intact. ABSENT: motor sensory deficit Psychiatric exam: PRESENT: appropriate affect, normal mood. ABSENT: homicidal ideation, suicidal ideation Skin exam: PRESENT: dry, intact, warm. ABSENT: cyanosis, rash Results Laboratory Results: 02/05/19 00:10 02/05/19 00:10 02/05/19 02/05/19 00:10 00:10 WBC 11.8 H RBC 6.54 H Hgb 12.4 L Hct 38.6 MCV 59 L MCH 18.9 L MCHC 32.0 RDW 15.9 H Plt Count 329 Seg Neutrophils % 67.9 Lymphocytes % 13.5 Monocytes % 12.1 Eosinophils % 5.9 Basophils % 0.6 Absolute Neutrophils 8.0 Absolute Lymphocytes 1.6 Absolute Monocytes 1.4 Absolute Eosinophils 0.7 H Absolute Basophils 0.1 Sodium 142.7 Potassium 4.3 Chloride 105 Carbon Dioxide 28 Anion Gap 10 BUN 13 Creatinine 0.98 Est GFR ( Amer) > 60 Est GFR (Non-Af Amer) > 60 Glucose 91 Calcium 9.8 Total Bilirubin 0.6 AST 31 ALT 36 Alkaline Phosphatase 82 Total Protein 7.8 Albumin 4.4 Impressions: Chest/Abdomen CTA 02/05/19 00:56 IMPRESSION: No definite pulmonary embolus. No aortic dissection or aneurysm. Tubular mucous plugging in the posterior left upper lobe with associated tree-in-bud nodules. This is suspicious for underlying infectious process. Indeterminate 2.6 cm left lower lobe pulmonary nodule/opacity. Recommend short-term follow-up in 2-4 weeks. Assessment and Plan - Diagnosis (1) Pneumonia Qualifiers: Pneumonia type: due to unspecified organism Laterality: left Lung location: unspecified part of lung Qualified Code(s): J18.9 - Pneumonia, unspecified organism Is this a current diagnosis for this admission?: Yes Plan: Complicated by asthma with vomiting unable to tolerate p.o. he is observed on a telemetry floor with pneumonia care set follow-up CBC and blood culture, single lung nodule present patient instructed to follow-up 4 to 6 months for imaging to verify resolution (2) Chest wall muscle strain Is this a current diagnosis for this admission?: Yes Plan: Exacerbated by coughing, symptomatic management and incentive spirometry to avoid splinting. - Time Time Spent with patient: 25-34 minutes
[2019-02-05] MEDS: IPRATROPIUM/ALBUTEROL 0.5-2.5 MG/3 ML AMPUL NEB SCH ×2 (09:12→16:24)
[2019-02-05] MEDS ORDERED: CEFTRIAXONE 1 GM/D5W RTU 1 GM/50 ML RTUPB IV SCH (10:00)
[2019-02-05] MEDS ORDERED: AZITHROMYCIN 500 MG in DEXTROSE 5%-WATER 250 ML IV SCH (10:00)
[2019-02-05] MEDS: CEFTRIAXONE SODIUM 1,000 MG in DEXTROSE 5%-WATER 50 ML IV SCH (17:55)
[2019-02-05] MEDS: AZITHROMYCIN 500 MG in DEXTROSE 5%-WATER 250 ML IV SCH (22:10)
[2019-02-06] MEDS: IPRATROPIUM/ALBUTEROL 0.5-2.5 MG/3 ML AMPUL NEB SCH ×3 (00:02→16:38)
[2019-02-06 04:28] LABS: ABSOLUTE BASOPHILS # (AUTO) 0.1 10^3/uL (0.0-0.2); ABSOLUTE EOSINOPHILS # (AUTO) 0.4 10^3/uL (0.0-0.6); ABSOLUTE LYMPHOCYTES (AUTO) 1.6 10^3/uL (0.5-4.7); ABSOLUTE MONOCYTES (AUTO) 0.7 10^3/uL (0.1-1.4); ABSOLUTE NEUT (AUTO) 3.9 10^3/uL (1.7-8.2); ABSOLUTE RETICS # 0.072 10^6/uL (0.028-0.122); BASOPHILS % (AUTO) 1.3 % (0-2); HEMATOCRIT 32.2 % (37.9-51.0); HEMOGLOBIN 10.5 g/dL (13.5-17.0); LYMPHOCYTES % (AUTO) 23.2 % (13-45); MEAN CORPUSCULAR HEMOGLOBIN 19.3 pg (27.0-33.4); MEAN CORPUSCULAR HGB CONC 32.6 g/dL (32.0-36.0); MEAN CORPUSCULAR VOLUME 59 fl (80-97); PLATELET COUNT 284 10^3/uL (150-450); RED BLOOD COUNT 5.46 10^6/uL (4.35-5.55); RED CELL DISTRIBUTION WIDTH 15.7 % (11.5-14.0); RETICULOCYTE COUNT (AUTO) 1.31 % (0.66-2.85); SEGMENTED NEUTROPHILS % (AUTO) 58.5 % (42-78); TOTAL CELLS COUNTED % (AUTO) 100 %; WHITE BLOOD COUNT 6.7 10^3/uL (4.0-10.5)
[2019-02-06 04:48] LABS: ANION GAP 9 (5-19)
[2019-02-06 05:07] LABS: ANISOCYTOSIS 1+; OVALOCYTES SLIGHT; TARGET CELLS 1+
[2019-02-06 05:08] LABS: HYPOCHROMASIA SLIGHT; POLYCHROMASIA SLIGHT
[2019-02-06 05:09] LABS: PLATELET COMMENT ADEQUATE
[2019-02-06 05:32] LABS: ALANINE AMINOTRANSFERASE 39 U/L (21-72); ALBUMIN 3.5 g/dL (3.5-5.0); ALKALINE PHOSPHATASE 61 U/L (38-126); ASPARTATE AMINO TRANSFERASE 25 U/L (17-59); BILIRUBIN,DIRECT 0.2 mg/dL (0.0-0.4); BILIRUBIN,TOTAL 0.6 mg/dL (0.2-1.3); BLOOD UREA NITROGEN 9 mg/dL (7-20); CALCIUM 9.6 mg/dL (8.4-10.2); CARBON DIOXIDE 25 mmol/L (22-30); CHLORIDE 107 mmol/L (98-107); GLUCOSE 91 mg/dL (75-110); IRON(TIBC) 47.2 ug/dL (49-181); POTASSIUM 4.1 mmol/L (3.6-5.0); SODIUM 141.1 mmol/L (137-145); TOTAL PROTEIN 6.6 g/dL (6.3-8.2)
[2019-02-06] MEDS: HEPARIN SOD (PORCINE) 5,000 UNIT/ML 1 ML SYRINGE SUBCUT SCH ×3 (06:41→21:24)
[2019-02-06] MEDS: FLUTICASONE NASAL SPRAY 50 MCG/SPRY 120 SPRAY/16 GM NASL SCH ×2 (10:32→21:29)
--- NOTE | 2019-02-06 13:37 | PDOC PROGRESS REPORT ---
Subjective Progress Note for:: 02/06/19 Subjective:: DEBBI HARRISON is a 33 year old male with a past medical history of asthma presents with 5 days of cough and fatigue developing shortness of breath and abdominal, chest wall pain with coughing and a single episode of hemoptysis versus hematemesis. Presents to the emergency room where he is found to have leukocytosis, fever, vomiting, unable to tolerate p.o. He is started on empiric antibiotics and referred to the hospitalist for admission. Patient denies recent antibiotic use. 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 No acute events overnight. Patient still complaining of left-sided pleuritic chest pain, productive cough, and being p.o. intolerant. Stating that yesterday he ate a little bit but made him sick to his stomach. Fever, chills, vomiting, diarrhea, constipation or any urinary symptoms. Reason For Visit: PNEUMONIA Physical Exam Vital Signs: Temp Pulse Resp BP Pulse Ox 97.4 F 85 16 126/77 H 98 02/06/19 07:59 02/06/19 08:44 02/06/19 08:44 02/06/19 07:59 02/06/19 08:44 Intake & Output 02/05/19 02/06/19 02/07/19 06:59 06:59 06:59 Intake Total 50 3432 Output Total 0 Balance 50 3432 Weight 87.8 kg 85.2 kg General appearance: PRESENT: no acute distress, well-developed, well-nourished Head exam: PRESENT: atraumatic, normocephalic Eye exam: PRESENT: conjunctiva pink, EOMI, PERRLA. ABSENT: scleral icterus Ear exam: PRESENT: normal external ear exam Mouth exam: PRESENT: moist, tongue midline Neck exam: ABSENT: carotid bruit, JVD, lymphadenopathy, thyromegaly Respiratory exam: PRESENT: clear to auscultation angélica, other - TTP left mid axillary and left midclavicular tenderness over the left chest.. ABSENT: rales, rhonchi, wheezes Cardiovascular exam: PRESENT: RRR. ABSENT: diastolic murmur, rubs, systolic murmur Pulses: PRESENT: normal dorsalis pedis pul Vascular exam: PRESENT: normal capillary refill GI/Abdominal exam: PRESENT: normal bowel sounds, soft. ABSENT: distended, guarding, mass, organolmegaly, rebound, tenderness Rectal exam: PRESENT: deferred Extremities exam: PRESENT: full ROM. ABSENT: calf tenderness, clubbing, pedal e scar Neurological exam: PRESENT: alert, awake, oriented to person, oriented to place, oriented to time, oriented to situation, CN II-XII grossly intact. ABSENT: motor sensory deficit Psychiatric exam: PRESENT: appropriate affect, normal mood. ABSENT: homicidal ideation, suicidal ideation Skin exam: PRESENT: dry, intact, warm. ABSENT: cyanosis, rash Results Laboratory Results: 02/06/19 04:12 02/06/19 04:12 02/06/19 02/06/19 02/06/19 04:12 04:12 08:50 WBC 6.7 RBC 5.46 Hgb 10.5 L Hct 32.2 L MCV 59 L MCH 19.3 L MCHC 32.6 RDW 15.7 H Plt Count 284 Seg Neutrophils % 58.5 Lymphocytes % 23.2 Monocytes % 11.0 Eosinophils % 6.0 Basophils % 1.3 Absolute Neutrophils 3.9 Absolute Lymphocytes 1.6 Absolute Monocytes 0.7 Absolute Eosinophils 0.4 Absolute Basophils 0.1 Retic Count (auto) 1.31 Absolute Retic 0.072 Sodium 141.1 Potassium 4.1 Chloride 107 Carbon Dioxide 25 Anion Gap 9 BUN 9 Creatinine 0.80 Est GFR ( Amer) > 60 Est GFR (Non-Af Amer) > 60 Glucose 91 Calcium 9.6 Magnesium 1.8 Iron 47.2 L TIBC 255 % Saturation 19 Ferritin 63.80 Total Bilirubin 0.6 AST 25 ALT 39 Alkaline Phosphatase 61 Total Protein 6.6 Albumin 3.5 Vitamin B12 553.0 Folate 17.60 Stool Occult Blood NEGATIVE Impressions: Chest/Abdomen CTA 02/05/19 00:56 IMPRESSION: No definite pulmonary embolus. No aortic dissection or aneurysm. Tubular mucous plugging in the posterior left upper lobe with associated tree-in-bud nodules. This is suspicious for underlying infectious process. Indeterminate 2.6 cm left lower lobe pulmonary nodule/opacity. Recommend short-term follow-up in 2-4 weeks. Assessment and Plan - Diagnosis (1) Pneumonia Qualifiers: Pneumonia type: due to Pneumococcus Laterality: left Lung location: unspecified part of lung Qualified Code(s): J13 - Pneumonia due to Streptococcus pneumoniae Is this a current diagnosis for this admission?: Yes Plan: Community-acquired, most likely due to gram-positive to coccus pneumonia. Denies any more episodes of hemoptysis. Vitals within normal limits. No leukocytosis, cultures negative. Day 3 of IV ceftriaxone and azithromycin. He could be switched to azithromycin p.o. tomorrow and discharged home if PO tolerant. (2) Chest wall muscle strain Is this a current diagnosis for this admission?: Yes Plan: Most likely due to excessive coughing. Has tenderness to palpation over his left chest wall. Continue antitussives and lidocaine patch for symptomatic management and oral analgesics. (3) Lung nodule, solitary Is this a current diagnosis for this admission?: Yes Plan: Denies any history of smoking. Incidental finding on CT chest for evaluation of pneumonia Patient advised to follow-up with a CT of chest in 4 to 6-week and follow-up with tip cementer. CT Chest 02/04/2019: Indeterminate 2.6 cm left lower lobe pulmonary nodule/opacity. (4) Anemia Is this a current diagnosis for this admission?: Yes Plan: Normocytic. He came in with one episode of hematemesis/hemoptysis on admission but on review of his records patient seems like anemia has chronic anemia. His Hgb was 12.1 in 2017. Denies any history of hematemesis, hemoptysis, melena, hematochezia, hematuria. Iron panel within normal limits. Stool guaiac negative. Start on ferrous sulfate supplement. Follow-up with PCP.
[2019-02-06] MEDS: ACETAMINOPHEN 325 MG TABLET PO PRN (13:40)
[2019-02-06] MEDS ORDERED: GUAIFENESIN/D-METHORPHAN (200-20 MG) SYRUP 10 ML PO PRN (13:44)
[2019-02-06] MEDS ORDERED: GUAIFENESIN/D-METHORPHAN (200-20 MG) SYRUP 10 ML PO ONE (13:44)
[2019-02-06] MEDS ORDERED: LIDOCAINE 5% (700 MG) TRANSDERMAL ADH..PATCH TP ONE (14:30)
[2019-02-06] MEDS: FERROUS SULFATE 325 MG TABLET PO SCH (15:05)
[2019-02-06] MEDS: CEFTRIAXONE SODIUM 1,000 MG in DEXTROSE 5%-WATER 50 ML IV SCH (17:18)
[2019-02-06] MEDS: AZITHROMYCIN 500 MG in DEXTROSE 5%-WATER 250 ML IV SCH (21:23)
[2019-02-07] MEDS: IPRATROPIUM/ALBUTEROL 0.5-2.5 MG/3 ML AMPUL NEB SCH ×3 (00:37→15:59)
[2019-02-07] MEDS: HEPARIN SOD (PORCINE) 5,000 UNIT/ML 1 ML SYRINGE SUBCUT SCH ×2 (05:11→14:25)
[2019-02-07 05:32] LABS: ABSOLUTE BASOPHILS # (AUTO) 0.1 10^3/uL (0.0-0.2); ABSOLUTE EOSINOPHILS # (AUTO) 0.6 10^3/uL (0.0-0.6); ABSOLUTE LYMPHOCYTES (AUTO) 1.3 10^3/uL (0.5-4.7); ABSOLUTE MONOCYTES (AUTO) 0.5 10^3/uL (0.1-1.4); ABSOLUTE NEUT (AUTO) 2.6 10^3/uL (1.7-8.2); BASOPHILS % (AUTO) 1.8 % (0-2); EOSINOPHILS % (AUTO) 11.1 % (0-6); HEMATOCRIT 34.1 % (37.9-51.0); HEMOGLOBIN 10.6 g/dL (13.5-17.0); LYMPHOCYTES % (AUTO) 25.9 % (13-45); MEAN CORPUSCULAR HEMOGLOBIN 18.7 pg (27.0-33.4); MEAN CORPUSCULAR HGB CONC 31.3 g/dL (32.0-36.0); MEAN CORPUSCULAR VOLUME 60 fl (80-97); MONOCYTES % (AUTO) 9.9 % (3-13); PLATELET COUNT 345 10^3/uL (150-450); RED CELL DISTRIBUTION WIDTH 15.5 % (11.5-14.0); SEGMENTED NEUTROPHILS % (AUTO) 51.3 % (42-78); TOTAL CELLS COUNTED % (AUTO) 100 %; WHITE BLOOD COUNT 5.1 10^3/uL (4.0-10.5)
[2019-02-07 05:56] LABS: ALANINE AMINOTRANSFERASE 34 U/L (21-72); ALBUMIN 3.5 g/dL (3.5-5.0); ALKALINE PHOSPHATASE 57 U/L (38-126); ANION GAP 11 (5-19); ASPARTATE AMINO TRANSFERASE 21 U/L (17-59); BILIRUBIN,DIRECT 0.2 mg/dL (0.0-0.4); BILIRUBIN,TOTAL 0.4 mg/dL (0.2-1.3); BLOOD UREA NITROGEN 10 mg/dL (7-20); CALCIUM 9.4 mg/dL (8.4-10.2); CARBON DIOXIDE 26 mmol/L (22-30); CHLORIDE 107 mmol/L (98-107); GLUCOSE 96 mg/dL (75-110); POTASSIUM 4.3 mmol/L (3.6-5.0); SODIUM 144.3 mmol/L (137-145); TOTAL PROTEIN 6.6 g/dL (6.3-8.2)
[2019-02-07 06:30] LABS: ANISOCYTOSIS SLIGHT; POIKILOCYTOSIS 1+
[2019-02-07 06:31] LABS: BURR CELLS SLIGHT; OVALOCYTES SLIGHT; PLATELET COMMENT ADEQUATE; SCHISTOCYTES SLIGHT
[2019-02-07] MEDS: FLUTICASONE NASAL SPRAY 50 MCG/SPRY 120 SPRAY/16 GM NASL SCH (09:36)
[2019-02-07] MEDS: FERROUS SULFATE 325 MG TABLET PO SCH (09:36)
[2019-02-07 15:28] VITALS: BP 119/71
--- NOTE | 2019-02-07 18:20 | PDOC DISCHARGE SUMMARY ---
General - Admit/Disc Date/PCP Admission Date/Primary Care Provider: 02/05/19 02:47 Discharge Date: 02/07/19 - Discharge Diagnosis (1) Pneumonia Is this a current diagnosis for this admission?: Yes Summary: Responded well to antibiotics. Will finish up her course of Levaquin at home. (2) Lung nodule, solitary Is this a current diagnosis for this admission?: Yes Summary: He will get a follow-up scan in 4 to 6 weeks and will follow up with his primary care provider. - Additional Information Resuscitation Status: Full Code Discharge Diet: Regular Discharge Activity: Activity As Tolerated Prescriptions: Levofloxacin [Levaquin 750 mg Tablet] 750 mg PO DAILY #5 tablet Home Medications: Albuterol Sulfate [Proair HFA Inhalation Aerosol 8.5 gm MDI] 1 puff IH Q4HP PRN 02/05/19 Levofloxacin [Levaquin 750 mg Tablet] 750 mg PO DAILY #5 tablet 02/07/19 History of Present Illness History of Present Illness: DEBBI HARRISON is a 33 year old male with a past medical history of asthma presents with 5 days of cough and fatigue developing shortness of breath and abdominal, chest wall pain with coughing and a single episode of hemoptysis versus hematemesis. Presents to the emergency room where he is found to have leukocytosis, fever, vomiting, unable to tolerate p.o. He is started on empiric antibiotics and referred to the hospitalist for admission. Patient denies recent antibiotic use. 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 Hospital Course Hospital Course: He responded well to antibiotics. He had intermittent fevers for the first couple of days but has been afebrile for over 24 hours. He will finish up a course of Levaquin at home. He was eating and drinking without difficulty. His breathing was comfortable. His labs and examination was reassuring and he was discharged in good condition. Physical Exam Vital Signs: Temp Pulse Resp BP Pulse Ox 97.4 F 72 14 119/71 98 02/07/19 15:26 02/07/19 15:59 02/07/19 15:59 02/07/19 15:26 02/07/19 15:59 Intake & Output 02/06/19 02/07/19 02/08/19 06:59 06:59 06:59 Intake Total 3432 720 400 Output Total 300 Balance 3432 420 400 Weight 85.2 kg 83.2 kg General appearance: PRESENT: no acute distress, well-developed, well-nourished Respiratory exam: PRESENT: clear to auscultation angélica, symmetrical, unlabored. ABSENT: rales, rhonchi, wheezes Cardiovascular exam: PRESENT: RRR. ABSENT: diastolic murmur, rubs, systolic m urmur Pulses: PRESENT: normal dorsalis pedis pul Vascular exam: PRESENT: normal capillary refill GI/Abdominal exam: PRESENT: normal bowel sounds, soft. ABSENT: distended, guarding, mass, organolmegaly, rebound, tenderness Extremities exam: PRESENT: full ROM. ABSENT: calf tenderness, clubbing, pedal edema Neurological exam: PRESENT: alert, awake, oriented to person, oriented to place, oriented to time, oriented to situation Results Laboratory Results: 02/07/19 04:36 02/07/19 04:36 02/07/19 02/07/19 04:36 04:36 WBC 5.1 RBC 5.70 H Hgb 10.6 L Hct 34.1 L MCV 60 L MCH 18.7 L MCHC 31.3 L RDW 15.5 H Plt Count 345 Seg Neutrophils % 51.3 Lymphocytes % 25.9 Monocytes % 9.9 Eosinophils % 11.1 H Basophils % 1.8 Absolute Neutrophils 2.6 Absolute Lymphocytes 1.3 Absolute Monocytes 0.5 Absolute Eosinophils 0.6 Absolute Basophils 0.1 Sodium 144.3 Potassium 4.3 Chloride 107 Carbon Dioxide 26 Anion Gap 11 BUN 10 Creatinine 0.83 Est GFR ( Amer) > 60 Est GFR (Non-Af Amer) > 60 Glucose 96 Calcium 9.4 Total Bilirubin 0.4 AST 21 ALT 34 Alkaline Phosphatase 57 Total Protein 6.6 Albumin 3.5 Impressions: Chest/Abdomen CTA 02/05/19 00:56 IMPRESSION: No definite pulmonary embolus. No aortic dissection or aneurysm. Tubular mucous plugging in the posterior left upper lobe with associated tree-in-bud nodules. This is suspicious for underlying infectious process. Indeterminate 2.6 cm left lower lobe pulmonary nodule/opacity. Recommend short-term follow-up in 2-4 weeks. Qualifiers - * PATIENT BEING DISCHARGED WITH ANY OF THE FOLLOWING DIAGNOSIS: No Plan Time Spent: Greater than 30 Minutes
== END 2019-02-07 16:51 | disposition home or self-care (01) ==
LOC: ER 21:31 → INTOOBSV 02-05 02:47 → EH 02-05 02:47 → 3W 02-05 04:05
PROVIDERS: ADMIT Internal Medicine; ATTEND Internal Medicine
DX: J13 Pneumonia due to Streptococcus pneumoniae (principal); R91.1 Solitary pulmonary nodule; R10.9 Unspecified abdominal pain; I25.2 Old myocardial infarction; D64.9 Anemia, unspecified; K92.0 Hematemesis; R04.2 Hemoptysis; M54.9 Dorsalgia, unspecified; S29.011A Strain of muscle and tendon of front wall of thorax, initial encounter; X58.XXXA Exposure to other specified factors, initial encounter; Z82.49 Family history of ischemic heart disease and other diseases of the circulatory system; Z98.890 Other specified postprocedural states; Z83.2 Family history of diseases of the blood and blood-forming organs and certain disorders involving the immune mechanism
CPT/HCPCS: 99284; 96374; 96375; 36415 ×3; 87040; 82607; 82728; 82746; 83540; 83550; 83735; 85025 ×3; 82272; 85045; 80053 ×3; 71275; 94799 ×2; 94667; 94668 ×3; 94640 ×3; G0378 ×4; J1644; J2270; J0696 ×3; J3490 ×2; J2405; J7060 ×2; J7030; J0456 ×2; J7620 ×3

== ENCOUNTER 2019-11-26 14:22 | Emergency (ER) | payer OTHER ==
[2019-11-26 14:31] VITALS: BP 151/67
--- NOTE | 2019-11-26 14:34 | ER Document Report ---
HPI - HPI Time Seen by Provider: 11/26/19 14:31 Context: 33 y/o male with history of asthma presents for refills of his asthma medication. Pt states he is on proair and advair 100/50 mcg BID. Pt denies any symptoms currently but states his asthma trigger is usually cold weather. Past Medical History - Social History Smoking Status: Unknown if Ever Smoked Family History: Hypertension - Past Medical History Cardiac Medical History: Reports: Hx Heart Attack - at age 23 Pulmonary Medical History: Reports: Hx Asthma Renal/ Medical History: Denies: Hx Peritoneal Dialysis Past Surgical History: Reports: Hx Cardiac Surgery - balloon pump - Immunizations Hx Diphtheria, Pertussis, Tetanus Vaccination: Yes Vertical Provider Document - CONSTITUTIONAL Agree With Documented VS: Yes Notes: GENERAL: Well-appearing, well-nourished and in no acute distress. HEAD: Atraumatic, normocephalic. EYES:Extraocular movements intact, sclera anicteric, conjunctiva are normal. NECK: Normal range of motion, supple without lymphadenopathy or JVD. LUNGS: No tripoding. No accessory muscle use. Nontachypneic. EXTREMITIES: Normal range of motion, no pitting or edema. No clubbing or cyanosis. NEUROLOGICAL: Cranial nerves II through XII grossly intact. Normal speech, normal gait. PSYCH: Normal mood, normal affect. SKIN: Warm, Dry, normal turgor, no rashes or lesions noted. - INFECTION CONTROL TRAVEL OUTSIDE OF THE [place] IN LAST 30 DAYS: No Course - Re-evaluation Re-evalutation: 11/26/19 Nontoxic well appearing 33 y/o male presents for refills for proair and advair. Pt denies any symptoms currently. Pt has no signs of acute respiratory distress. PE is otherwise unremarkable. Pt given prescription refills and close follow up with PCP. Strict return precautions given. - Vital Signs Vital signs: Temp Pulse Resp BP Pulse Ox 98.1 F 77 18 151/67 H 100 11/26/19 14:30 11/26/19 14:30 11/26/19 14:30 11/26/19 14:30 11/26/19 14:30 Discharge - Discharge Clinical Impression: Medication refill Asthma Qualifiers: Asthma severity: unspecified severity Asthma persistence: unspecified Asthma complication type: uncomplicated Qualified Code(s): J45.909 - Unspecified asthma, uncomplicated Condition: Stable Disposition: HOME, SELF-CARE Instructions: Asthma ([facility]) Additional Instructions: Please take your medications as prescribed. Please follow up with your primary care doctor or one of the clinics listed in 3-5 days. Return immediately to ER for any worsening symptoms, including shortness of breath, coughing up blood, chest pain, fever, or any other symptoms that are concerning to you. Prescriptions: Fluticasone/Salmeterol [Advair 100-50 Diskus 14 Dose/Diskus] 1 inh IH Q12H #1 inhaler Albuterol Sulfate [Proair HFA Inhalation Aerosol 8.5 gm MDI] 2 puff IH Q4H PRN #1 mdi PRN Reason: Referrals: SATURNINO BENITES MD [ACTIVE STAFF] - Follow up in 3-5 days [facility] [Provider Group] - Follow up in 3-5 days
== END 2019-11-26 14:40 | disposition home or self-care (01) ==
LOC: ER 14:22
DX: Z76.0 Encounter for issue of repeat prescription (principal); J45.909 Unspecified asthma, uncomplicated; Z79.899 Other long term (current) drug therapy; I25.2 Old myocardial infarction
CPT/HCPCS: 99281